=== PATIENT | female | born 1970 | race Caucasian/White ===

== ENCOUNTER 2019-11-06 23:07 | Emergency (ER) | payer OTHER ==
[2019-11-06 23:14] VITALS: BP 120/85; PULSE 67; TEMP 98.1; BMI 21.4
--- NOTE | 2019-11-06 23:23 | PDOC ---
History of Present Illness - General Chief Complaint: Laceration Stated Complaint: CUT LEFT INDEX FINGER WITH KNIFE Time Seen by Provider: 11/06/19 23:14 History Source: Patient Exam Limitations: No Limitations - History of Present Illness Initial Comments: 11/06/19 23:18 This is a 49-year-old female who comes in complaining of a avulsion to the tip of her finger. Patient cut it with a knife. Patient's tetanus is up-to-date. Allergies: as per nursing notes Past Medical History: none Social history: Lives with family. No smoking. No alcohol. No illicit drugs. Surgical history: None General: No fevers or chills, no weakness, no weight loss HEENT: No change in vision. No sore throat,. No ear pain CardioVascular: no chest discomfort. No shortness of breath Respiratory:No cough, or wheezing. Gastrointestinal: no nausea, vomiting, diarrhea or constipation, No rectal bleeding Genitourinary: No dysuria, hematuria, or frequency Musculoskeletal: No joint or muscle pain or swelling Neurologic: No headache, vertigo, dizziness or loss of consciousness Psychiatric: nor depression Skin: No rashes or easy bruising Endocrine: no increased thirst or abnormal weight change Allergic: no skin or latex allergy All other systems reviewed and normal GENERAL: The patient is awake, alert, and fully oriented, in no acute distress. HEAD: Normal with no signs of trauma. EYES: Pupils equal, round and reactive to light, extraocular movements intact, sclera anicteric, conjunctiva clear. EXTREMITIES:atraumatic, Normal range of motion, no edema. Left index finger there is an avulsion of the tip of the finger with no active bleeding. NEUROLOGICAL: Normal speech, normal gait. PSYCH: Normal mood, normal affect. SKIN: Warm, Dry, normal turgor, no rashes or lesions noted. Procedure note finger avulsion closed with Dermabond patient tolerated well Assessment and plan: This is a 49-year-old female with a fingertip avulsion secondary to cutting it off with a knife. There was no active bleeding at the time of my evaluation so I sealed it with some Dermabond and patient discharged. Patient's tetanus was up-to-date Past History - Past Medical History Allergies/Adverse Reactions: Allergies Allergy/AdvReac Type Severity Reaction Status Date / Time No Known Allergies Allergy Verified 11/06/19 23:08 Home Medications: Ambulatory Orders NK [No Known Home Medication] 11/06/19 COPD: No - Psycho Social/Smoking Cessation Hx Smoking History: Never smoked Have you smoked in the past 12 months: No Information on smoking cessation initiated: No Hx Alcohol Use: Yes Drug/Substance Use Hx: No *Physical Exam - Vital Signs Last Vital Signs Temp Pulse Resp BP Pulse Ox 98.1 F 67 16 120/85 100 11/06/19 23:10 11/06/19 23:10 11/06/19 23:10 11/06/19 23:10 11/06/19 23:10 Discharge - Discharge Information Problems reviewed: Yes Clinical Impression/Diagnosis: Avulsion, finger tip Qualifiers: Encounter type: initial encounter Qualified Code(s): S61.209A - Unspecified open wound of unspecified finger without damage to nail, initial encounter Condition: Stable Disposition: HOME - Admission No - Follow up/Referral - Patient Discharge Instructions Patient Printed Discharge Instructions: DI for Laceration Repair With Dermabond Additional Instructions: Read over and follow Dermabond instructions. No lotions creams or ointments on the glue as it will cause it to come off early. Return to the emergency department immediately with ANY new, persistent or worsening symptoms. Continue any medications as previously prescribed by your physician. You should follow up with your primary doctor as soon as possible regarding today's emergency department visit. . Please make sure your doctor reviews the results of your emergency evaluation. Thank you for coming to the Emergency Department today for your care. It was a pleasure to see you today. Please note that your evaluation is INCOMPLETE until you follow-up with your doctor. - Post Discharge Activity
== END 2019-11-06 23:35 | disposition home or self-care (01) ==
LOC: FER 23:07
PROC: 0HQGXZZ Repair Left Hand Skin, External Approach (ICD-10-PCS; principal; 2019-11-06)
DX: S61.211A Laceration without foreign body of left index finger without damage to nail, initial encounter (principal); W26.0XXA Contact with knife, initial encounter; Y93.9 Activity, unspecified; Y92.89 Other specified places as the place of occurrence of the external cause
CPT/HCPCS: 99281-25